=== PATIENT | male | born 1975 | race Hispanic/Latino ===

== ENCOUNTER 2017-07-03 07:36 | Emergency (ER) | payer OTHER ==
--- NOTE | 2017-07-03 08:02 | EDPHYS ---
Physician Documentation [facility] Name: Benson Laura Age: 41 yrs Sex: Male : 1975 Arrival Date: 07/03/2017 Time: 07:41 Bed 18 Private MD: ED Physician Faustino Schmidt HPI: 07/03 08:06 This 41 yrs old Male presents to ER via Ambulatory with complaints of Back jr8 Pain. 08:06 The patient presents with pain that is acute. The symptoms are located in the low back. jr8 Onset: The symptoms/episode began/occurred acutely, yesterday. The pain does not radiate. Associated signs and symptoms: The patient has no apparent associated signs or symptoms. The problem was sustained from twisting. Modifying factors: The patient symptoms are alleviated by nothing, the patient symptoms are aggravated by bending, movement. Severity of symptoms: At their worst the symptoms were moderate, in the emergency department the symptoms are unchanged. The patient has not experienced similar symptoms in the past. The patient has not recently seen a physician. Stated that he slipped on water yesterday and twisted back. Denies falling and hitting back on ground . Historical: - Allergies: 08:05 NKA; iw - Home Meds: 08:05 metformin 500 mg Oral Tb24 twice a day [Active]; iw - PMHx: 08:05 Diabetes - NIDDM; iw - PSHx: 08:05 None; iw - Immunization history:: Adult Immunizations up to date. - Social history:: Smoking status: Patient/guardian denies using tobacco. ROS: 08:06 Eyes: Negative for injury, pain, redness, and discharge, ENT: Negative for injury, jr8 pain, and discharge, Neck: Negative for injury, pain, and swelling, Cardiovascular: Negative for chest pain, palpitations, and edema, Respiratory: Negative for shortness of breath, cough, wheezing, and pleuritic chest pain, Abdomen/GI: Negative for abdominal pain, nausea, vomiting, diarrhea, and constipation, MS/Extremity: Negative for injury and deformity, Skin: Negative for injury, rash, and discoloration, Neuro: Negative for headache, weakness, numbness, tingling, and seizure. 08:06 Back: Positive for decreased range of motion, pain at rest, pain with movement, Negative for radiated pain. Exam: 08:06 Eyes: Pupils equal round and reactive to light, extra-ocular motions intact. Lids and jr8 lashes normal. Conjunctiva and sclera are non-icteric and not injected. Cornea within normal limits. Periorbital areas with no swelling, redness, or edema. ENT: Nares patent. No nasal discharge, no septal abnormalities noted. Tympanic membranes are normal and external auditory canals are clear. Oropharynx with no redness, swelling, or masses, exudates, or evidence of obstruction, uvula midline. Mucous membranes moist. Neck: Trachea midline, no thyromegaly or masses palpated, and no cervical lymphadenopathy. Supple, full range of motion without nuchal rigidity, or vertebral point tenderness. No Meningismus. Cardiovascular: Regular rate and rhythm with a normal S1 and S2. No gallops, murmurs, or rubs. Normal PMI, no JVD. No pulse deficits. Respiratory: Lungs have equal breath sounds bilaterally, clear to auscultation and percussion. No rales, rhonchi or wheezes noted. No increased work of breathing, no retractions or nasal flaring. Abdomen/GI: Soft, non-tender, with normal bowel sounds. No distension or tympany. No guarding or rebound. No evidence of tenderness throughout. Skin: Warm, dry with normal turgor. Normal color with no rashes, no lesions, and no evidence of cellulitis. MS/ Extremity: Pulses equal, no cyanosis. Neurovascular intact. Full, normal range of motion. Neuro: Awake and alert, GCS 15, oriented to person, place, time, and situation. Cranial nerves II-XII grossly intact. Motor strength 5/5 in all extremities. Sensory grossly intact. Cerebellar exam normal. Normal gait. 08:06 Back: pain, that is moderate, of the left low back, ROM is painful, normal spinal alignment noted, CVA tenderness, is absent, muscle spasm, is appreciated in the left low back and right low back. Vital Signs: 08:05 BP 134 / 82; Pulse 89; Resp 16; Temp 98.2; Pulse Ox 98% on R/A; Weight 149.69 kg; iw Height 6 ft. (182.88 cm); Pain 7/10; 08:05 Body Mass Index 44.76 (149.69 kg, 182.88 cm) iw MDM: 07:48 Patient medically screened. jr8 08:01 Data reviewed: vital signs, nurses notes, and as a result, I will discharge patient. jr8 Data interpreted: Pulse oximetry: on room air is 100 %. Interpretation: normal. Counseling: I had a detailed discussion with the patient and/or guardian regarding: the historical points, exam findings, and any diagnostic results supporting the discharge/admit diagnosis, the need for outpatient follow up, a family practitioner, to return to the emergency department if symptoms worsen or persist or if there are any questions or concerns that arise at home. 08:06 ED course: Discussed with patient that because he had no fall or direct injury to back. jr8 Less likely to be some type of vertebral fracture. More likely with the twisting motion to have aggravated nerve root or caused muscle spasm. To try heat therapy in combination with medications given along with rest for 1 week. If worse or not getting better to f/u for reevaluation and possible MRI if needed . Administered Medications: No medications were administered Disposition: 11:31 Co-signature as Attending Physician, Faustino Schmidt MD. rn Disposition: 07/03/17 08:02 Discharged to Home. Impression: Low back pain. - Condition is Stable. - Discharge Instructions: Back Pain, Adult, Musculoskeletal Pain, Back Exercises, [id number], Heat Therapy. - Prescriptions for Ibuprofen 800 mg Oral Tablet - take 1 tablet by ORAL route every 12 hours As needed take with food; 20 tablet. Cyclobenzaprine 10 mg Oral Tablet - take 1 tablet by ORAL route every 8 hours As needed; 30 tablet. Tramadol 50 mg Oral Tablet - take 1 tablet by ORAL route every 8 hours as needed; 12 tablet. - Medication Reconciliation Form, Thank You Letter, Antibiotic Education, Prescription Opioid Use form. - Work release form (07/03/17 15:00). ag - Follow up: Private Physician; When: 10 - 14 days; Reason: If symptoms return, Recheck today's complaints, Continuance of care, Re-evaluation by your physician. - Problem is new. - Symptoms have improved. Signatures: Sangeetha Dc, RN Ina Trevino ch, RN RN iw Nieto, Roman, MD MD rn Roszak, Josh, PA PA jr8 Nohemy Edward
--- NOTE | 2017-07-03 08:24 | ER ---
Nurse's Notes [facility] Name: Benson Laura Age: 41 yrs Sex: Male : 1975 Arrival Date: 07/03/2017 Time: 07:41 Bed 18 Private MD: Diagnosis: Low back pain Presentation: 07/03 07:50 Presenting complaint: Patient states: slipped last night and twisted his back, now has iw left lower back pain 10/02. Transition of care: patient was not received from another setting of care. Onset of symptoms was July 02, 2017. Care prior to arrival: None. 07:50 Method Of Arrival: Ambulatory iw 07:50 Acuity: OBINNA 5 iw Historical: - Allergies: 08:05 NKA; iw - Home Meds: 08:05 metformin 500 mg Oral Tb24 twice a day [Active]; iw - PMHx: 08:05 Diabetes - NIDDM; iw - PSHx: 08:05 None; iw - Immunization history:: Adult Immunizations up to date. - Social history:: Smoking status: Patient/guardian denies using tobacco. Screenin:08 Abuse screen: Denies threats or abuse. Denies injuries from another. Nutritional iw screening: No deficits noted. Tuberculosis screening: No symptoms or risk factors identified. Fall Risk None identified. Assessment: 08:07 General: Appears in no apparent distress. Behavior is calm, cooperative. Pain: iw Complains of pain in left low back Pain currently is 7 out of 10 on a pain scale. Neuro: Level of Consciousness is awake, alert, obeys commands, Oriented to person, place, time, situation, Moves all extremities. Full function. Cardiovascular: Patient's skin is warm and dry. Respiratory: Respiratory effort is even, unlabored, Respiratory pattern is regular. GI: No signs and/or symptoms were reported involving the gastrointestinal system. Abdomen is non-distended. Derm: Skin is pink, warm \T\ dry. normal. Musculoskeletal: Range of motion: intact in all extremities, Reports pain in back. 08:23 Reassessment: Patient appears in no apparent distress at this time. No changes from ch previously documented assessment. Patient and/or family updated on plan of care and expected duration. Pain level reassessed. Patient is alert, oriented x 3, equal unlabored respirations, skin warm/dry/pink. Vital Signs: 08:05 BP 134 / 82; Pulse 89; Resp 16; Temp 98.2; Pulse Ox 98% on R/A; Weight 149.69 kg; iw Height 6 ft. (182.88 cm); Pain 7/10; 08:05 Body Mass Index 44.76 (149.69 kg, 182.88 cm) ED Course: 07:41 Patient arrived in ED. mr 07:48 [facility] jr8 07:48 Faustino Schmidt MD is Attending Physician. jr8 08:05 Triage completed. iw 08:05 Arm band placed on. iw 08:07 Ina Faye, RN is Primary Nurse. iw 08:08 No provider procedures requiring assistance completed. Patient did not have IV access iw during this emergency room visit. 08:23 Patient has correct armband on for positive identification. Bed in low position. Call light in reach. Administered Medications: No medications were administered Outcome: 08:02 Discharge ordered by . 8 08:23 Discharged to home ambulatory, with family. 08:23 Condition: stable 08:23 Discharge instructions given to patient, Instructed on discharge instructions, follow up and referral plans. no drinking with medication, no driving heavy equipment, medication usage, Demonstrated understanding of instructions, follow-up care, medications, Prescriptions given X 3. 08:24 Patient left the ED. Signatures: Sangeetha Dc, RN Vanessa Infante ch mr Ina Faye, RN RN Shamir Cosme PA PA jr8
== END 2017-07-03 08:24 | disposition home or self-care (01) ==
LOC: ER 07:36
DX: M54.5 Low back pain (principal); E11.9 Type 2 diabetes mellitus without complications
CPT/HCPCS: 99282

== ENCOUNTER 2019-12-17 06:17 | Day surgery (SDC) | payer BC ==
[2019-12-11 11:37] LABS: Protime INR 0.88
--- NOTE | 2019-12-11 11:46 | RAD REPORT ---
EXAM DESCRIPTION: RAD - Chest Pa And Lat (2 Views) - 12/11/2019 11:36 am CLINICAL HISTORY: preop Chest pain. COMPARISON: CHEST PA AND LAT 2 VIEW dated 05/17/2015; CHEST SINGLE VIEW dated 11/01/2012 FINDINGS: The lungs are clear. The heart is normal in size. No displaced fractures. IMPRESSION: No acute or concerning finding suspected.
--- OUTSIDE RECORDS SUMMARY | 2019-12-17 06:28 | XMS REPORT | Continuity of Care Document ---
:1975 Author Organization [facility] t Address [address] [place] [address] Care Team Providers Name Role Phone LucindaJose D Attending Clinician Toni PAUL L Attending Clinician Problems Condition Condition Condition Status Onset Resolution Last Treating Co mments Source Name Details Category Date Date Treatment Clinician Date Arthritis Arthritis Diagnosis Active [facility] Pain, Pain, Diagnosis Active [facility], [facility], [facility], [facility] Diabetes Problem Active 2019-10-19 Mem oria mellitus 00:22:42 l (disorder) Diabetes He rmann mellitus (disorder) Active Problem 10/19/2019 [facility] Allergies, Adverse Reactions, Alerts Allergy Allergy Status Severity Reaction(s) Onset Inactive Treating Comm ents Source Name Type Date Date Clinician No Known No Known Active [facility] Medicati Medicati l on on [place] Allergie Allergie s s Social History Smoking Status Start Date Stop Date Source Social History [facility] Medications Ordered Filled Start Stop Current Ordering Indication Dosage Frequency Signature Comments Components Source Medication Medication Date Date Medication? Clinician (SIG) Name Name Metformin Yes 500 mg = 1 Me moria hydrochlori 7-23 tab, PO, l de 500 MG 15:37: BID, 0 Jair n Oral Tablet 00 Refill(s) Metformin Metformin Yes Isaiah not [facility] HCl HCl Menodza defined [facility] Glimepiride Glimepiride Yes Isaiah not [facility] M[facility]za defined [facility] Vital Signs Vital Name Observation Time Observation Value Comments Source Height 2019-10-16 15:35:00 177.8 cm Alfonso Alvaann Weight 2019-10-16 15:35:00 [facility] BMI Calculated 2019-10-16 15:35:00 Sabrina Unger Procedures This patient has no known procedures. Encounters Start End Encounter Admission Attending Care Care Encounter Source Date/Time Date/Time Type Type Clinicians Facility Department ID 2019-11-06 2019-11-06 Outpatient [facility]i [facility] [id number] [facility] 10:30:00 10:30:00 [facility] 2019-11-04 2019-11-04 Outpatient [facility]i [facility] [id number] [facility] 11:25:00 11:25:00 [facility] 2019-10-30 2019-10-30 Outpatient [facility] [id number] [facility] 15[facility]00:00 15:00:00 [facility] 2019-10-24 2019-10-24 Outpatient [facility] [id number] [facility] [address] 11:04:00 11:04:00 t [facility] 2019-10-22 2019-10-22 Outpatient [facility]i [facility] [id number] [facility] [address] 08:00:00 08:00:00 t [facility] 2019-10-17 2019-10-17 Outpatient [facility] [id number] [facility] 09:00:00 09:00:00 t [facility] 2019-10-16 2019-10-16 Outpatient ELIZABETH Jane [facility] [id number] 09:45:00 23:59:59 Raul 00 Jose D 2019-09-23 2019-09-23 Outpatient Fabi [place] [id number] 09:00:00 09:00:00 t [facility] ent Clinics 2019-08-20 2019-08-20 Office FEDERICA Muñoz [id number] 14:56:26 15:37:38 Visit [facility] [id number] Surgical [id number] Specialti [id number] [address] Results This patient has no known results.
--- OUTSIDE RECORDS SUMMARY | 2019-12-17 06:28 | XMS REPORT ---
:1975 Author Organization [employer] Care Team Providers Name Role Phone Isaiah Mendoza Provider Role Unavailable Allergies, Adverse Reactions, Alerts Substance Reaction Event Type N.K.D.A. Info Not Available Non Drug Allergy Problems Problem Type Condition Code Onset Dates Condition Statu s Assessment Pain, joint, knee, right M25.561 Act brianna Problem Arthritis of knee, right M17.11 Act brianna Assessment Arthritis of knee, right M17.11 Act brianna Medications Medication Code System Code Instructions Start End Date Status Dos age Date Metformin HCl [facility] [id number] 500 MG Oral Active no t defined Results No Known Results Summary Purpose [employer] Submission
--- OUTSIDE RECORDS SUMMARY | 2019-12-17 06:28 | XMS REPORT ---
:1975 Author Organization [employer] Care Team Providers Name Role Phone Isaiah Mendoza Provider Role Unavailable Allergies No Known Allergies Problems Problem Type Condition Code Onset Dates Condition Statu s Assessment Pain, joint, knee, right M25.561 Act brianna Problem Arthritis of knee, right M17.11 Act brianna Assessment Arthritis of knee, right M17.11 Act brianna Medications Medication Code System Code Instructions Start End Date Status Dos age Date Metformin HCl [facility] 74142680443 500 MG Oral Active no t defined Results No Known Results Summary Purpose [employer] Submission
--- OUTSIDE RECORDS SUMMARY | 2019-12-17 06:28 | XMS REPORT | Summary of Care ---
:1975 Author Organization [facility] Address [address] [place] [id number]- Encounter HQ Encntr_alias(FIN) [id number] Date(s): 10/16/19 - 10/16/19 [facility] [address] [place] [address]- [phone] Discharge Disposition: Home or Self Care Attending Physician: Raul Jane MD Vital Signs Most recent to oldest [Reference Range]: 1 Height 177.8 cm (10/16/19 10:35 AM) Weight 146.364 kg (10/16/19 10:35 AM) Body Mass Index 46.3 m2 (10/16/19 10:35 AM) Problem List Condition Effective Dates Status Health Status Informant Diabetes(Confirmed) Active Allergies, Adverse Reactions, Alerts No Known Medication Allergies Medications metFORMIN 500 mg oral tablet 500 mg = 1 tab, PO, BID, 0 Refill(s) Start Date: 10/16/19 Status: Ordered Results No data available for this section Immunizations No data available for this section Procedures No data available for this section Social History Social History Type Response Smoking Status Never smoker; Exposure to To bacco Smoke None; Cigarette Smoking Last 365 Days No; Reg Smoking Cessation Counseling No entered on: 10/16/19 Assessment and Plan No data available for this section
--- OUTSIDE RECORDS SUMMARY | 2019-12-17 06:28 | XMS REPORT ---
:1975 Author Organization [employer] Care Team Providers Name Role Phone Reji Isaiah Provider Role Unavailable Allergies No Known Allergies Problems Problem Type Condition Code Onset Dates Condition Statu s Problem Arthritis of knee, right M17.11 Act brianna Medications No Known Medications Results No Known Results Summary Purpose [employer] Submission
--- OUTSIDE RECORDS SUMMARY | 2019-12-17 06:28 | XMS REPORT ---
:1975 Author Organization [employer] Care Team Providers Name Role Phone Isaiah Mendoza Provider Role Unavailable Allergies, Adverse Reactions, Alerts Substance Reaction Event Type N.K.D.A. Info Not Available Non Drug Allergy Problems Problem Type Condition Code Onset Dates Condition Statu s Assessment Arthritis of knee, right M17.11 Act brianna Problem Arthritis of knee, right M17.11 Act brianna Assessment Pain, joint, knee, right M25.561 Act brianna Medications Medication Code Code Instructions Start End Date Status Dosage System Date Glimepiride [facility] [address]-46 Active not defined Metformin HCl [facility] 99437402394 500 MG Oral Active no t defined Results No Known Results Summary Purpose [employer] Submission
--- OUTSIDE RECORDS SUMMARY | 2019-12-17 06:28 | XMS REPORT ---
[...] right M17.11 Act brianna Medications Medication Code Code Instructions Start End Date Status Dosage System Date Metformin HCl [facility] [id number] 500 MG Oral Active no t defined Glimepiride [facility] [address]-25 Active not defined Results No Known Results Summary Purpose [employer] Submission
--- OUTSIDE RECORDS SUMMARY | 2019-12-17 06:28 | XMS REPORT ---
[...] End Date Status Dosage System Date Glimepiride [facility] [address]-94 Active not defined Metformin HCl [facility] 69301262492 500 MG Oral Active no t defined Results No Known Results Summary Purpose [employer] Submission
--- OUTSIDE RECORDS SUMMARY | 2019-12-17 06:28 | XMS REPORT | Continuity of Care Document ---
:1975 Author Organization [employer] Care Team Providers Name Role Phone [facility] Unavailable Un available Problems Problem Status Onset Classification Date Comments Sourc e Date Reported Diabetes Active Problem 10/19/2019 Medica l mellitus Group (disorder) Medications Medication Details Route Status Patient Ordering Order Source Instructions Provider Date Metformin 500 mg = 1 Active hydrochloride tab, PO, 020 [facility] 500 MG Oral BID, 0 Group Tablet Refill(s) Allergies, Adverse Reactions, Alerts Substance Category Reaction Severity Reaction Status Date Comments S ource type Reported No Known Assertion Drug Medication allergy Medic al Allergies Group Immunizations No Data Provided for This Section Results No Data Provided for This Section Pathology Reports No Data Provided for This Section Diagnostic Reports No Data Provided for This Section Consultation Notes No Data Provided for This Section Discharge Summaries No Data Provided for This Section History and Physicals No Data Provided for This Section Vital Signs Vital Sign Value Date Comments Source Height 177.8 cm 10/16/2019 [facility] Weight 146.364 10/16/2019 [facility] BMI Calculated 46.3 10/16/2019 [facility] oup Encounters Location Location Encounter Encounter Reason Attending ADM [facility] Source Details Type Number For Provider Date Date Visit Outpatient [id number] [facility] 10/15 [facility] Outpatient [id number] [facility] 10/15 10/16 [facility] Procedures No Data Provided for This Section Assessment and Plan No Data Provided for This Section Plan of Care No Data Provided for This Section Social History Social History Date Source Social History TypeResponse 10/16/2019 [facility] Smoking Status Never smoker; Exposure to Tobacco Smoke None; Cigarette Smoking Last 365 Days No; Reg Smoking Cessation Counseling No entered on: 10/16/19 Family History No Data Provided for This Section Advance Directives No Data Provided for This Section Functional Status No Data Provided for This Section
[2019-12-17] MEDS ORDERED: CEFAZOLIN/SWI 2gm 2 GM/20 ML SYR ONE (06:48)
[2019-12-17] MEDS ORDERED: NA CHLORIDE 0.9% 1,000 ML ONE (06:48)
[2019-12-17] MEDS ORDERED: FENTANYL CITR 100 MCG/2 ML ONE (07:18)
[2019-12-17] MEDS ORDERED: dexAMETHasone 10 MG/ML VIAL ONE (07:18)
[2019-12-17] MEDS ORDERED: LIDOCAINE 2% MPF 5 ML VIAL ONE (07:18)
[2019-12-17] MEDS ORDERED: MIDAZOLAM HCL 2 MG/2 ML INJ ONE (07:18)
[2019-12-17] MEDS ORDERED: propofoL 200 MG/20 ML VIAL IV ONE (07:18)
[2019-12-17] MEDS ORDERED: BUPIVACAINE 0.25% PF 30 ML VIAL ONE (07:32)
[2019-12-17] MEDS ORDERED: KETOROLAC 30 MG/ML INJ ONE (08:37)
--- NOTE | 2019-12-17 08:56 | P.BOP ---
Preoperative diagnosis: right knee chondromalacia medial femoral condyle Postoperative diagnosis: same, right knee medial meniscus tear, medial plica Primary procedure: right arthroscopic chondroplasty with microfracture medial femoral condyle Secondary procedure: right knee arthroscopic partial medial meniscectomy Other procedure(s): right knee arthroscopic plica excision Personal Coach: NONE,NONE Estimated blood loss: <5 cc Specimen: none Findings: see dictation Complications: None Implants: none Fluids & blood products: per anesthesia record; TT: 31 mins @ 300 mmHg Transferred to: Recovery Room Condition: Good
[2019-12-17] MEDS: MORPHINE 4 MG/ML SYR ONE ×2 (09:05→09:10)
[2019-12-17] MEDS ORDERED: ONDANSETRON 4 MG/2 ML VIAL ONE (09:13)
[2019-12-17] MEDS ORDERED: MEPERIDINE HCL 25 MG/ML SYR ONE (09:23)
[2019-12-17 09:25] VITALS: BP 122/75; TEMP 97.2; O2SAT 97
[2019-12-17] MEDS ORDERED: HYDROCODONE/APAP 7.5/325 MG TAB ONE (09:48)
--- NOTE | 2019-12-18 23:36 | OP ---
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 Postoperative Diagnoses: 1. 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 2. Right shoudler medial meniscus tear. 3. Right shoudler medial plica. Procedure Performed: 1. Right shoudler arthroscopic chondroplasty with microfracture of the medial femoral condyle. 2. Right shoulder arthroscopic partial medial meniscectomy. 3. Right shoulder arthroscopic plica excision. Anesthesia: General laryngeal mask airway. Fluids: Per Anesthesia record. Estimated Blood Loss: Less than 5 cc. Specimens: None. Complications: None. Implants: None. Tourniquet Time: 31 minutes at 300 mmHg. Indication For Procedure: Benson is a 44-year-old male who presented to my clinic with right knee pain. MRI demonstrated a focal area of chondromalacia with some subchondral edema. The patient failed conservative treatment measures including corticosteroid injections as well as viscosupplementation injections. I discussed with the patient at length risks and benefits associated with operative and nonoperative treatment. I also discussed with the patient the possibility of a diffuse chondromalacia, which would be less than amenable to microfracture. He expressed understanding and elected to proceed with the operative treatment. Description Of Procedure: After informed consent was obtained, the patient was identified in the preoperative holding area. The right lower extremity was marked. The patient was then brought back to the operating room, transferred to the operating table in supine fashion, placed under general laryngeal mask airway anesthesia. The right lower extremity was then prepped and draped in the usual sterile fashion. A time-out was initiated. The correct patient and procedure were confirmed and identified. The patient did receive his preoperative prophylactic antibiotics. The right lower extremity was then exsanguinated using an Esmarch and the tourniquet was inflated to 300 mmHg. Standard anteromedial and anterolateral portals were created and the arthroscope was brought in via the anterolateral portal. Diagnostic arthroscopy was performed. The arthroscope was brought into the patellofemoral joint. The patient was noted to have some grade 2 chondromalacia changes of the undersurface of his patella and was also noted to have some what appeared to be small chondral loose bodies within the suprapatellar pouch, which were removed using the arthroscopic shaver. The arthroscope was then brought into both medial and lateral gutters. There were no loose bodies noted in the gutters. The arthroscope was then brought up the medial compartment. The patient was noted to have significant chondromalacia of the weightbearing surface of the medial femoral condyle. Grade 4 type of chondromalacia of approximately 6 mm in width and over 2 cm in length. Grade 4 changes were noted to be over the weightbearing surface. These chondral flaps were then debrided and a chondroplasty was performed using the arthroscopic shaver. The area of the grade 4 chondromalacia microfracture was performed using chondral picks. Multiple holes were then made in the area of the grade 4 chondromalacia changes. Next, attention was taken to the medial meniscus and there was noted to have a degenerative-type tear of the posterior horn of the medial meniscus. An arthroscopic shaver was then used to perform partial medial meniscectomy with stapled meniscal borders. The arthroscope was then brought into the intercondylar notch. The patient was noted to have an intact anterior cruciate ligament and posterior cruciate ligament. The arthroscope was then brought in the lateral compartment and the patient was noted to have an intact lateral meniscus and no significant chondromalacia of the lateral femoral condyle, lateral tibial plateau. The patient was noted to have a medial plica which was rubbing over the medial aspect of the medial femoral condyle. Medial plica excision was performed using an arthroscopic shaver made radiofrequency ablator. Arthroscopic instruments were then removed without complication. The wounds were then irrigated thoroughly with normal saline and approximated using a 3-0 Monocryl. Sterile dressings were applied. Tourniquet was let down. The patient was awakened and transferred to post-anesthesia care unit in stable condition. Postoperative Plan: Benson will be nonweightbearing of his right lower extremity to allow for complete healing of the microfracture. We will begin physical therapy in 4-6 weeks to work on range of motion and strengthening. I discussed with the patient and his family at length the need for weight loss and good glucose control to help prolong the life of his knee. He expressed understanding. CAROLINE/DORI Voice ID: [id number] Report ID: [id number] JAMES
== END 2019-12-17 10:18 | disposition home or self-care (01) ==
LOC: OR 06:17
PROVIDERS: ATTEND Orthopaedic Surgery Sports Medicine
PROC: 0SQC4ZZ Repair Right Knee Joint, Percutaneous Endoscopic Approach (ICD-10-PCS; 2019-12-17)
PROC: 0SBC4ZZ Excision of Right Knee Joint, Percutaneous Endoscopic Approach (ICD-10-PCS; principal; 2019-12-17 07:30)
DX: M94.28 Chondromalacia, other site (principal); M17.11 Unilateral primary osteoarthritis, right knee; E11.9 Type 2 diabetes mellitus without complications; F17.210 Nicotine dependence, cigarettes, uncomplicated; Z20.828 Contact with and (suspected) exposure to other viral communicable diseases
CPT/HCPCS: 93005; 36415; 85610; 82947 ×2; 85730; 71046; 29881; 29879; U0002; J2704; J2250; J3010; J1100; J2175; J0690; J7030; J2405

== ENCOUNTER 2020-08-11 06:22 | Day surgery (SDC) | payer BC ==
--- NOTE | 2020-08-05 13:38 | RAD REPORT ---
EXAM DESCRIPTION: RAD - Chest Pa And Lat (2 Views) - 08/05/2020 1:30 pm CLINICAL HISTORY: preop Chest pain. COMPARISON: <Comparisons> FINDINGS: The lungs are clear. The heart is normal in size. No displaced fractures. IMPRESSION: No acute or concerning finding suspected.
[2020-08-05 13:55] LABS: Absolute Lymphocytes (CBC) 1.6 K/uL (0.7-4.9); Basophils % 0.7 % (0-1.3); Hematocrit 48.4 % (39.6-49.0); Lymphocytes % 21.3 % (15.3-44.8); MPV 9.7 fL (7.6-11.3); RBC Red Blood Cell Count 5.55 M/uL (4.33-5.43)
[2020-08-05 14:04] LABS: Protime INR 1.03
[2020-08-05 14:05] LABS: BUN Blood Urea Nitrogen 13 mg/dL (7-18); Bicarbonate 26 mmol/L (21-32); Glucose Level 185 mg/dL (74-106); Potassium 3.9 mmol/L (3.5-5.1); Sodium Level 137 mmol/L (136-145)
[2020-08-11] MEDS ORDERED: NA CHLORIDE 0.9% 1,000 ML ONE (06:59)
[2020-08-11] MEDS ORDERED: CEFAZOLIN/SWI 2gm 2 GM/20 ML SYR ONE (06:59)
[2020-08-11] MEDS ORDERED: LIDOCAINE 2% MPF 5 ML VIAL ONE (07:07)
[2020-08-11] MEDS ORDERED: FENTANYL CITR 100 MCG/2 ML ONE ×2 (07:07→08:09)
[2020-08-11] MEDS ORDERED: KETOROLAC 30 MG/ML INJ ONE (07:07)
[2020-08-11] MEDS ORDERED: MIDAZOLAM HCL 2 MG/2 ML INJ ONE (07:07)
[2020-08-11] MEDS ORDERED: propofoL 200 MG/20 ML VIAL IV ONE (07:07)
[2020-08-11] MEDS ORDERED: dexAMETHasone 10 MG/ML VIAL ONE (07:07)
[2020-08-11] MEDS ORDERED: BUPIVACAINE 0.25% PF 30 ML VIAL ONE (07:17)
[2020-08-11 07:18] VITALS: TEMP 97
--- NOTE | 2020-08-11 08:41 | P.BOP ---
Preoperative diagnosis: left knee medial meniscus tear and chondromalacia [facility] Postoperative diagnosis: same, left knee medial plica Primary procedure: left knee arthroscopic partial medial meniscectomy Secondary procedure: left knee arthroscopic microfracture medial femoral condyle Other procedure(s): left knee arthroscopic medial plica excision Estimated blood loss: 3 cc Specimen: none Findings: see dictation Anesthesia: General Complications: None Implants: none Fluids & blood products: per anesthesia record; TT: 37 mins @ 300 mmHg Transferred to: Recovery Room Condition: Good
[2020-08-11 09:24] VITALS: BP 140/89; O2SAT 99
[2020-08-11] MEDS ORDERED: HYDROCODONE/APAP 5/325 MG TAB ONE (09:51)
--- NOTE | 2020-08-13 01:19 | OP ---
Date of Procedure: 08/11/2020 Surgeon: Isaiah Mendoza MD Preoperative Diagnoses: Left knee medial meniscus tear and chondromalacia of medial femoral condyle. Postoperative Diagnoses: 1.Left knee medial meniscus tear and chondromalacia of medial femoral condyle. 2.Left knee medial plica. 3.Left knee lateral meniscus tear. Procedures Performed: 1.Left knee arthroscopic partial medial and lateral meniscectomies. 2.Left knee arthroscopic microfracture of medial femoral condyle. 3.Left knee arthroscopic medial plica excision. Anesthesia: General LMA. Fluids: Per Anesthesia record. Estimated Blood Loss: 3 cc. Tourniquet Time: 37 minutes at 300 mmHg. Complications: None. Implants: None. Indication For Procedure: Benson is a 45-year-old male, who presented to my clinic with signs, symp toms, and MRI findings consistent with medial meniscus tear as well as chondromalacia of the medial f emoral condyle. I discussed with the patient at length risks and benefits associated with operative and nonoperative treatment. He expressed understanding and elected to proceed with operative treatme nt. Description Of Procedure: After informed consent was obtained, the patient was identified in the pre operative holding area. The left lower extremity was marked. The patient was then brought back to [facility] operating room, transferred to the operating table in supine fashion and placed under general LMA anesthesia. The left lower extremity was then prepped and draped in usual sterile fashion. A time-o ut was initiated. Correct patient and procedure were confirmed and identified. The patient did rece brianna his preoperative prophylactic antibiotics. The left lower extremity was then exsanguinated and t ourniquet was inflated to 300 mmHg. Standard anteromedial and anterolateral portals were created and a diagnostic arthroscopy was performed. Arthroscope was first brought into the patellofemoral joint where the patient was noted to have no loose bodies and some minimal chondromalacia noted. The arth roscope was then brought into both medial and lateral gutters where the patient was noted to have wojciech e loose bodies, which were removed with an arthroscopic grasper. The arthroscope was then brought in to the medial compartment. The patient was noted to have grade 4 chondromalacia of the medial femora l condyle. The area of chondromalacia was near the periphery over the medial aspect of the medial fe moral condyle over the weightbearing portion of the medial femoral condyle. There were stable should ers at that point and was elected to proceed with microfracture of the area of chondromalacia, which was approximately 4 mm in width by approximately 10-12 mm in length. A microfracture awl was then pl aced to perform the microfracture and this was completed without complication. Next, there was noted the patient had a complex tear of the posterior horn of the medial meniscus near the medial meniscus posterior root. A partial medial meniscectomy was performed using the arthroscopic meniscal biter a s well as an arthroscopic shaver to smooth meniscal borders, which were stable to probe. The arthros cope was then brought to the medial compartment and brought to the intercondylar space where the shane ent was noted to have an intact ACL and PCL, which were stable to probe. The arthroscope was then br ought out the lateral compartment where the patient was noted to have fraying and degenerative menisc us tear of the lateral meniscal body. An arthroscopic shaver as well as meniscal biter was then used to re-perform a partial lateral meniscectomy to stable meniscal borders. There were no significant chondromalacia changes noted within the lateral compartment. The arthroscopic instruments were then removed without complication. The wounds were then irrigated thoroughly with normal saline. The ski n was approximated using a 3-0 Monocryl. Sterile dressings were applied. Tourniquet was let down. The patient was awakened and transferred to PACU in stable condition. Postoperative Plan: The patient will be nonweightbearing on the left lower extremity for 6 weeks sec ondary to the microfracture. He will follow up in my clinic in 2 weeks for wound check. Physical Therapy will be consulted postoperativel yHerbert VELAZQUEZ/DORI Voice ID: [id number] Report ID: [id number]
== END 2020-08-11 10:05 | disposition home or self-care (01) ==
LOC: OR 06:22
PROVIDERS: ATTEND Orthopaedic Surgery Sports Medicine
PROC: 0SQD4ZZ Repair Left Knee Joint, Percutaneous Endoscopic Approach (ICD-10-PCS; 2020-08-11)
PROC: 0SBD4ZZ Excision of Left Knee Joint, Percutaneous Endoscopic Approach (ICD-10-PCS; principal; 2020-08-11 07:15)
DX: S83.242A Other tear of medial meniscus, current injury, left knee, initial encounter (principal); M94.261 Chondromalacia, right knee; Z20.822 Contact with and (suspected) exposure to COVID-19
CPT/HCPCS: 93005; 85025; 80048; 36415; 85610; 82947 ×2; 85730; 71046; 29881; 29879; U0002; J2704; J2250; J3010 ×2; J1100; J0690; J7030

== ENCOUNTER 2020-10-06 18:15 | Emergency (ER) | payer BC ==
--- OUTSIDE RECORDS SUMMARY | 2020-10-06 18:18 | XMS REPORT | Continuity of Care Document ---
:1975 Author Organization [facility] t Address [address] [place] [address] Care Team Providers Name Role Phone Toni PAUL, L Attending Clinician Problems This patient has no known problems. Allergies, Adverse Reactions, Alerts This patient has no known allergies or adverse reactions. Medications Ordered Filled Start Stop Current Ordering Indication Dosage Frequency Signature Comments Components Source Medication Medication Date Date Medication? Clinician (SIG) Name Name Metformin Metformin Yes Isaiah not [facility] HCl HCl [facility]endoza defined [facility] Glimepiride Glimepiride Yes Isaiah not [facility] Mendoza defined [facility] Procedures This patient has no known procedures. Encounters Start End Encounter Admission Attending Care Care Encounter Source Date/Time Date/Time Type Type Clinicians Facility Department ID 2020-09-21 2020-09-21 Outpatient [facility] [id number] [facility] 2020-08-24 2020-08-24 Outpatient [facility] [id number] [facility] 2020-08-10 2020-08-10 Outpatient [facility] [id number] [facility] 2020-07-30 2020-07-30 [facility] [id number] [facility] 2020-07-20 2020-07-20 [facility] [id number] [facility] 2020-06-11 2020-06-11 [facility] [id number] [facility] 2020-03-11 2020-03-11 [facility] [id number] [facility] 2020-02-02 2020-02-02 Out[facility] [id number] [facility] 2020-01-05 2020-01-05 [facility] [id number] [facility] 2019-12-22 2019-12-22 [facility] [id number] [facility] 2019-12-11 2019-12-11 Out[facility] [id number] [facility] 2019-11-06 2019-11-06 [facility] [id number] [facility] 10[facility] 10[facility] 2019-11-04 2019-11-04 [facility] [id number] 11:25:00 11:25:00 [facility] 2019-10-30 2019-10-30 [facility] [id number] 15:00[facility]00 15:00:00 [facility] 2019-10-24 2019-10-24 Outpatient Fabi Moreno [id number] [facility] 11:04:00 11:04:00 [facility] 2019-10-22 2019-10-22 Outpatient Fabi Moreno [id number] [facility] 08:00:00 08:00:00 [facility] 2019-10-17 2019-10-17 Outpatient Fabi Moreno [id number] 09:00:00 09:00:00 [facility] 2019-09-23 2019-09-23 Outpatient Fabi Moreno [id number] 09:00:00 09:00:00 [facility] 2019-08-20 2019-08-20 Office PAWEL Muñoz [id number] 14:56:26 15:37:38 Visit [facility] [id number] Surgical [id number] [facility] [id number] [address] Results This patient has no known results.
--- NOTE | 2020-10-06 21:00 | RAD REPORT ---
EXAM DESCRIPTION: CT - Head Brain Wo Cont - 10/06/2020 8:51 pm CLINICAL HISTORY: Left eye pain and swelling COMPARISON: None TECHNIQUE: Computed axial tomography of the head was obtained. IV contrast was not requested. All CT scans are performed using dose optimization technique as appropriate and may include automated exposure control or mA/KV adjustment according to patient size. FINDINGS: An intracranial bleed is not seen . The ventricles are normal in caliber. No extra-axial fluid collection is noted. Left preseptal swelling. The periorbital fat is clear. Left globe is normal size and density. Extra-o cular muscles normal size and density. Fluid within the sinuses/ mastoids is not seen. IMPRESSION: Left preseptal swelling presumably a preseptal cellulitis
[2020-10-06 21:30] LABS: Absolute Lymphocytes (CBC) 1.5 K/uL (0.7-4.9); Hematocrit 44.8 % (39.6-49.0); MPV 9.7 fL (7.6-11.3); RBC Red Blood Cell Count 5.11 M/uL (4.33-5.43)
--- NOTE | 2020-10-06 21:38 | ER ---
Nurse's Notes [facility] Name: Benson Laura Age: 45 yrs Sex: Male : 1975 Arrival Date: 10/06/2020 Time: 18:16 Bed Treatment Private MD: Yrn Loyola Diagnosis: Cellulitis of left orbit-- Preseptal not orbital Presentation: 10/06 18:22 Chief complaint: Patient states: left eye pain, swelling and tearing x 2 days, denies jl7 trauma. Coronavirus screen: Client denies travel out of the [place] in the last 14 days. At this time, the client does not indicate any symptoms associated with coronavirus-19. Ebola Screen: No symptoms or risks identified at this time. Mechanism of Injury: No Mechanism of Injury. The patient denies any loss of vision. Initial Sepsis Screen: Does the patient meet any 2 criteria? No. Patient's initial sepsis screen is negative. Does the patient have a suspected source of infection? No. Patient's initial sepsis screen is negative. Risk Assessment: Do you want to hurt yourself or someone else? Patient reports no desire to harm self or others. Onset of symptoms was October 04, 2020. 18:22 Method Of Arrival: Ambulatory [facility] 18:22 Acuity: OBINNA 4 jl7 Triage Assessment: 18:24 General: Appears in no apparent distress. uncomfortable, Behavior is calm, cooperative, jl7 appropriate for age. Pain: Complains of pain in left eye Pain currently is 9 out of 10 on a pain scale. EENT: Eyes are tearing on left eye. Historical: - Allergies: 18:24 NKA; jl7 - Home Meds: 18:24 metformin 500 mg Oral Tb24 twice a day [Active]; Glipizide Oral [Active]; jl7 - PMHx: 18:24 Diabetes - NIDDM; jl7 - PSHx: 18:24 SHERMAN knee; jl7 - Immunization history:: Adult Immunizations up to date, Client reports receiving the 2nd dose of the Covid vaccine. - Social history:: Smoking status: Patient denies any tobacco usage or history of. Screenin:34 Abuse screen: Denies threats or abuse. Denies injuries from another. Nutritional kg screening: No deficits noted. Tuberculosis screening: No symptoms or risk factors identified. Fall Risk None identified. No fall in past 12 months (0 pts). No secondary diagnosis (0 pts). IV access (20 points). Ambulatory Aid- None/Bed Rest/Nurse Assist (0 pts). Gait- Normal/Bed Rest/Wheelchair (0 pts) Mental Status- Oriented to own ability (0 pts). Total Hood Fall Scale indicates No Risk (0-24 pts). Assessment: 20:32 Reassessment: Vision is 20/20 in left eye. General: Appears in no apparent distress. kg Behavior is calm, cooperative, appropriate for age, quiet. Pain: Complains of pain in left eye Pain radiates to face Pain currently is 4 out of 10 on a pain scale. at worst was 9 out of 10 on a pain scale. level that patient reports is acceptable is 4 out of 10 on a pain scale. Quality of pain is described as aching, tender, soreness Pain began 2-3 days ago. Neuro: No deficits noted. Cardiovascular: No deficits noted. Respiratory: No deficits noted. GI: No deficits noted. : No deficits noted. EENT: Eyes are tearing on outer aspect of conjuctiva of left eye, iris of left eye and inner aspect of conjunctiva of left eye Sclera/Cornea Lid(s) Swollen. Vital Signs: 18:22 BP 158 / 104; Pulse 77; Resp 15; Temp 98.5; Pulse Ox 99% on R/A; Weight 147.42 kg; jl7 Height 5 ft. 10 in. (177.80 cm); Pain 9/10; 20:35 BP 146 / 93; Pulse 73; Resp 20; Pulse Ox 98% on R/A; kg 21:35 BP 148 / 97; Pulse 71; Resp 20; Pulse Ox 100% on R/A; kg 18:22 Body Mass Index 46.63 (147.42 kg, 177.80 cm) jl7 Visual Acuity: 20:34 Left Eye Visual acuity 20/20, Pupil size 3 mm, Normal, Brisk; Right Eye Visual acuity kg 20/20, Pupil size 3 mm, Normal, Brisk; Both Eyes Visual acuity 20/20; Without Lenses; ED Course: 18:16 Patient arrived in ED. am2 18:16 Yrn Loyola MD is Private Physician. am2 18:24 Triage completed. jl7 18:24 Arm band placed on right wrist. Patient placed in waiting room, Patient notified of jl7 wait time. 20:00 Jai Garvey MD is Attending Physician. ps1 20:15 Ale Desai, RN is Primary Nurse. kg 20:30 Patient has correct armband on for positive identification. Bed in low position. Call kg light in reach. Side rails up X2. 20:34 No provider procedures requiring assistance completed. kg 20:51 CT Head Brain wo Cont In Process Unspecified. EDMS 21:37 Danyell Hernandez MD is Referral Physician. ps1 21:53 IV discontinued, intact, bleeding controlled, No redness/swelling at site. Pressure kg dressing applied. Administered Medications: 21:30 Drug: Decadron - Dexamethasone 10 mg Route: IVP; Site: right wrist; kg 21:47 Follow up: Response: No adverse reaction kg 21:31 Drug: Clindamycin 900 mg Route: IVPB; Infused Over: 30 mins; Site: right wrist; kg 21:47 Follow up: Response: No adverse reaction; IV Status: Completed infusion; IV Intake: 50mlkg 21:33 Drug: NS 0.9% 1000 ml Route: IV; Rate: 1 bolus; Site: right wrist; kg 21:47 Follow up: Response: No adverse reaction; IV Status: Completed infusion; IV Intake: kg 1000ml Intake: 21:47 IV: 50ml; Total: 50ml. kg 21:47 IV: 1000ml; Total: 1050ml. kg Outcome: 21:37 Discharge ordered by . ps1 21:53 Discharged to home ambulatory. kg 21:53 Condition: good 21:53 Discharge instructions given to patient, Instructed on discharge instructions, follow up and referral plans. Demonstrated understanding of instructions, follow-up care, medications, Prescriptions given X 2. 21:58 Patient left the ED. kg Signatures: Dispatcher [employer] EDMS Eli Booker RN RN jl7 Aracely Zacarias am2 Jai Garvey MD MD ps1 Ale Desai, RN RN kg
--- NOTE | 2020-10-06 21:38 | EDPHYS ---
Physician Documentation [facility] Name: Benson Laura Age: 45 yrs Sex: Male : 1975 Arrival Date: 10/06/2020 Time: 18:16 Bed Treatment Private MD: Yrn Loyola ED Physician Jai Garvey HPI: 10/06 20:28 This 45 yrs old Male presents to ER via Ambulatory with complaints of Eye ps1 Swelling, Eye Pain. 20:28 Onset was 3 days ago. Preceded by pimple to left eyebrow. Worsening with associated ps1 swelling to the periorbital tissues and eyelid. No pain with eye movement. Has pain behind the eye. No visual changes. Pain is moderate. Taking ibuprofen. No fever. Has drainage which is clear and not purulent. Has diabetes. Usually well controlled however may be elevated because he recently traveled and diet has been off. Usually between 120-150. . Historical: - Allergies: 18:24 NKA; jl7 - Home Meds: 18:24 metformin 500 mg Oral Tb24 twice a day [Active]; Glipizide Oral [Active]; jl7 - PMHx: 18:24 Diabetes - NIDDM; jl7 - PSHx: 18:24 SHERMAN knee; jl7 - Immunization history:: Adult Immunizations up to date, Client reports receiving the 2nd dose of the Covid vaccine. - Social history:: Smoking status: Patient denies any tobacco usage or history of. ROS: 20:28 Constitutional: Negative for fever, chills, and weight loss, ENT: Negative for injury, ps1 pain, and discharge, Cardiovascular: Negative for chest pain, palpitations, and edema, Respiratory: Negative for shortness of breath, cough, wheezing, and pleuritic chest pain, Abdomen/GI: Negative for abdominal pain, nausea, vomiting, diarrhea, and constipation, MS/Extremity: Negative for injury and deformity, Skin: Negative for injury, rash, and discoloration, Neuro: Negative for headache, weakness, numbness, tingling, and seizure. 20:28 Eyes: Positive for redness, swelling, tearing, of the left upper eyelid, left outer canthus, left inner canthus and left lower eyelid, Negative for discharge, photophobia, visual disturbance. Exam: 20:28 Constitutional: This is a well developed, well nourished patient who is awake, alert, ps1 and in no acute distress. Head/Face: Normocephalic, atraumatic. Chest/axilla: Normal chest wall appearance and motion. Nontender with no deformity. No lesions are appreciated. Cardiovascular: Regular rate and rhythm. No gallops, murmurs, or rubs. Normal PMI, no JVD. No pulse deficits. Respiratory: Lungs have equal breath sounds bilaterally, clear to auscultation and percussion. No rales, rhonchi or wheezes noted. No increased work of breathing, no retractions or nasal flaring. Abdomen/GI: Soft, non-tender, with normal bowel sounds. No distension or tympany. No guarding or rebound. No evidence of tenderness throughout. Skin: Warm, dry with normal turgor. Normal color with no rashes, no lesions, and no evidence of cellulitis. MS/ Extremity: Pulses equal, no cyanosis. Neurovascular intact. Full, normal range of motion. Neuro: Awake and alert, GCS 15, oriented to person, place, time, and situation. Cranial nerves II-XII grossly intact. Sensory grossly intact. 20:28 Eyes: Periorbital structures: cellulitis, that is moderate, on the left supraorbital ridge, left upper eyelid, medial canthus of left eye, lateral canthus of left eye and left lower eyelid, erythema, that is mild, swelling, that is moderate, Pupils: equal, round, and reactive to light and accomodation, Extraocular movements: intact throughout, Conjunctiva: normal, Corneas: are normal, Sclera: no appreciated abnormality. Vital Signs: 18:22 BP 158 / 104; Pulse 77; Resp 15; Temp 98.5; Pulse Ox 99% on R/A; Weight 147.42 kg; jl7 Height 5 ft. 10 in. (177.80 cm); Pain 9/10; 20:35 BP 146 / 93; Pulse 73; Resp 20; Pulse Ox 98% on R/A; kg 21:35 BP 148 / 97; Pulse 71; Resp 20; Pulse Ox 100% on R/A; kg 18:22 Body Mass Index 46.63 (147.42 kg, 177.80 cm) jl7 Visual Acuity: 20:34 Left Eye Visual acuity 20/20, Pupil size 3 mm, Normal, Brisk; Right Eye Visual acuity kg 20/20, Pupil size 3 mm, Normal, Brisk; Both Eyes Visual acuity 20/20; Without Lenses; MDM: 20:24 Patient medically screened. ps1 21:38 Differential diagnosis: preseptal / septal cellulitis, retrobulbar abscess, infection ps1 NOS, conjunctivitis, and others. Data reviewed: vital signs, nurses notes, lab test result(s), radiologic studies, and as a result, I will discharge patient. Counseling: I had a detailed discussion with the patient and/or guardian regarding: the historical points, exam findings, and any diagnostic results supporting the discharge/admit diagnosis, lab results, radiology results, the need for outpatient follow up, to return to the emergency department if symptoms worsen or persist or if there are any questions or concerns that arise at home. 10/06 20:26 Order name: CBC with Diff; Complete Time: 21:35 ps1 10/06 21:35 Interpretation: Within normal limits: WBC 7.00. ps1 10/06 20:26 Order name: BMP ps1 10/06 20:26 Order name: CT Head Brain wo Cont; Complete Time: 21:35 ps1 Administered Medications: 21:30 Drug: Decadron - Dexamethasone 10 mg Route: IVP; Site: right wrist; kg 21:47 Follow up: Response: No adverse reaction kg 21:31 Drug: Clindamycin 900 mg Route: IVPB; Infused Over: 30 mins; Site: right wrist; kg 21:47 Follow up: Response: No adverse reaction; IV Status: Completed infusion; IV Intake: 50mlkg 21:33 Drug: NS 0.9% 1000 ml Route: IV; Rate: 1 bolus; Site: right wrist; kg 21:47 Follow up: Response: No adverse reaction; IV Status: Completed infusion; IV Intake: kg 1000ml Disposition Summary: 10/06/20 21:37 Discharge Ordered Location: Home ps1 Problem: new ps1 Symptoms: have improved ps1 Condition: Stable ps1 Diagnosis - Cellulitis of left orbit - - Preseptal not orbital ps1 Followup: ps1 - With: Danyell Hernandez MD - When: 48 Hours - Reason: Fever > 102 F, Further diagnostic work-up, Recheck today's complaints, Continuance of care Followup: ps1 - With: Emergency Department - When: As needed - Reason: Fever > 102 F, Worsening of condition Discharge Instructions: - Discharge Summary Sheet ps1 - Preseptal Cellulitis, Adult ps1 Forms: - Medication Reconciliation Form ps1 - Thank You Letter ps1 - Antibiotic Education ps1 - Prescription Opioid Use ps1 Prescriptions: - Clindamycin HCl 300 mg Oral Capsule - take 1 capsule by ORAL route every 6 hours for 10 days; 40 capsule; Refills: 0, ps1 Product Selection Permitted - Medrol (Singh) 4 mg Oral Tablets, Dose Pack - take 1 tablet by ORAL route as directed - follow package instructions; 1 ps1 packet; Refills: 0, Product Selection Permitted Signatures: Dispatcher [employer] Eli Frausto RN RN jl7 Jai Garvey MD MD ps1 Ale Desai RN RN kg
[2020-10-06] MEDS ORDERED: NA CHLORIDE 0.9% 1,000 ML ONE (21:45)
[2020-10-06] MEDS ORDERED: dexAMETHasone 10 MG/ML VIAL ONE (21:45)
[2020-10-06] MEDS ORDERED: CLINDAMYCIN 900MG/D5W 900 MG/50 ML IVPB IV ONE (21:45)
[2020-10-06 21:46] LABS: BUN Blood Urea Nitrogen 11 mg/dL (7-18); Bicarbonate 27 mmol/L (21-32); Glucose Level 276 mg/dL (74-106); Potassium 3.9 mmol/L (3.5-5.1); Sodium Level 139 mmol/L (136-145)
[2020-10-06 22:24] VITALS: TEMP 98.5
[2020-10-06 22:27] VITALS: BP 148/97; O2SAT 100
== END 2020-10-06 21:58 | disposition home or self-care (01) ==
LOC: ER 18:15
DX: L03.213 Periorbital cellulitis (principal); E11.9 Type 2 diabetes mellitus without complications
CPT/HCPCS: 96365; 85025; 80048; 36415; 70450; 96375; 99283; J1100; J7030

== ENCOUNTER 2022-12-08 07:05 | Day surgery (SDC) | payer BC ==
--- NOTE | 2022-12-04 11:17 | RAD REPORT ---
EXAM DESCRIPTION: RAD - Chest Pa And Lat (2 Views) - 12/04/2022 11:12 am CLINICAL HISTORY: preop pending knee arthroscopy, diabetes COMPARISON: Chest Pa And Lat (2 Views) dated 08/05/2020; Chest Pa And Lat (2 Views) dated 12/11/2019; CHEST PA AND LAT 2 VIEW dated 05/17/2015; CHEST SINGLE VIEW dated 11/01/2012 FINDINGS: Lines: None. Lungs: No evidence of edema or pneumonia. Pleural: No significant pleural effusions or pneumothorax. Cardiac: The heart size is within normal limits. Mediastinum: Within normal limits. Bones: No acute fractures. Other: None IMPRESSION: No acute cardiopulmonary disease.
[2022-12-04 11:20] LABS: Absolute Lymphocytes (CBC) 1.2 K/uL (0.7-4.9); Hematocrit 48.1 % (39.6-49.0); Lymphocytes % 17.4 % (15.3-44.8); MCV 88.5 fL (80-100); MPV 8.9 fL (7.6-11.3); Platelets 221 thou/uL (152-406); RBC Red Blood Cell Count 5.43 M/uL (4.33-5.43)
[2022-12-04 11:32] LABS: Potassium 3.9 mEq/L (3.5-5.1)
--- NOTE | 2022-12-04 17:05 | EKG ---
Test Date: 2022-12-04 Test Time: 10:53:56 Corporate Pilot: GURMEET MEASUREMENT RESULTS: Intervals: Rate: 74 TN: 164 QRSD: 86 QT: 386 QTc: 428 [place]: P: 66 TN: 164 QRS: 60 T: 66 INTERPRETIVE STATEMENTS: Normal sinus rhythm Normal ECG Compared to ECG 08/05/2020 12:11:49 Myocardial infarct finding no longer present Electronically Signed On 12-04-22 17:04:22 CDT by Moses Jacome
[2022-12-08] MEDS ORDERED: NA CHLORIDE 0.9% 1,000 ML ONE (07:31)
[2022-12-08] MEDS ORDERED: propofoL 200 MG/20 ML VIAL IV ONE (07:35)
[2022-12-08] MEDS ORDERED: LIDOCAINE 2% MPF 5 ML VIAL ONE (07:35)
[2022-12-08] MEDS ORDERED: FENTANYL CITR 100 MCG/2 ML ONE ×2 (07:35→08:35)
[2022-12-08] MEDS: CEFAZOLIN SODIUM 2 GM/VIAL ONE ×2 (07:45→08:00)
[2022-12-08] MEDS ORDERED: TRIAMCINOLONE ACETON 40 MG/ML VIAL ONE (08:06)
[2022-12-08] MEDS ORDERED: SUCCINYLCHOLINE 20 MG/ML (10 ML) IV ONE (08:07)
[2022-12-08] MEDS: BUPIVACAINE 0.25% PF 10 ML VIAL ONE ×2 (08:32→08:52)
--- NOTE | 2022-12-08 09:00 | P.BOP ---
Preoperative diagnosis: right knee medial meniscus tear, right knee osteoarthritis Postoperative diagnosis: same Primary procedure: right knee arthroscopic partial medial meniscectomy Calender Operator Helper: NONE,NONE Estimated blood loss: 3 cc Specimen: none Findings: see dictation Anesthesia: General Complications: None Implants: none Fluids & blood products: per anesthesia record; TT: 19 mins @ 300 mmHg Transferred to: Recovery Room Condition: Good
[2022-12-08] MEDS: HYDROMORPHONE HCL 1 MG/ML INJ ONE ×2 (09:08→09:23)
[2022-12-08 09:47] VITALS: BP 145/82; TEMP 96.8; O2SAT 98
--- NOTE | 2022-12-08 11:00 | OP ---
Date of Procedure: 12/08/2022 Surgeon: Isaiah Mendoza MD Preoperative Diagnoses: 1.Right knee medial meniscus tear. 2.Right knee osteoarthritis. Postoperative Diagnoses: 1.Right knee medial meniscus tear. 2.Right knee osteoarthritis. Procedure Performed: Right knee arthroscopic partial medial meniscectomy. Anesthesia: General endotracheal. Fluids: Per Anesthesia record. Estimated Blood Loss: 3 cc. Complications: None. Implants: None. Tourniquet Time: 90 minutes at 300 mmHg. Indication For Procedure: Benson is a 47-year-old male who presented to my clinic with physical exa m findings as well as MRI findings consistent with right knee medial meniscus tear and right knee ost eoarthritis. Patient failed conservative treatment measures including corticosteroid injection as we ll as viscosupplementation injections. He continued to have pain and mechanical symptoms. We discus sed operative and nonoperative treatment including right knee arthroscopic partial medial meniscectom y as well as risks and benefits associated with the procedure. He expressed understanding and electe d to proceed with operative treatment. Description Of Procedure: After informed consent was obtained, the patient was identified in the pre operative holding area. The right lower extremity was marked. Patient was then brought back to the operating room, transferred to operating table in supine fashion, placed under general endotracheal a nesthesia. The right lower extremity was then prepped and draped in usual sterile fashion. A time-o ut was initiated. The correct patient and procedure were confirmed and identified. Patient did rece brianna his preoperative prophylactic antibiotics. The right lower extremity was then exsanguinated. To urniquet was inflated to 300 mmHg. Standard anteromedial and anterolateral portals were created. Ar throscope was brought in via the anterolateral portal. Diagnostic arthroscopy was performed. Arthro scope was first brought in the patellofemoral joint. The patient did have some grade 2 and 3 chondro malacia changes on the undersurface of the patella and trochlear groove. The arthroscope was then br ought in the medial and lateral gutters and there were no loose bodies found within the gutters. Art hroscope was then brought in the medial compartment. Patient was noted to have grade 3 chondromalaci a changes noted at the medial femoral condyle. Prior area that was microfractured did have some hilu m like cartilage growth filling in most of the defect. Patient did have a complex tear of the postie ior horn of the medial meniscus. A partial medial meniscectomy was performed using meniscal biters a nd arthroscopic shaver to smooth meniscal borders. The arthroscope was then brought back into the in tercondylar notch and the patient was noted to have an intact ACL and PCL. The arthroscope was then brought in the lateral compartment. Patient was noted to have a pristine cartilage of the lateral fe moral condyle and lateral tibial plateau. Lateral meniscus was stable to probe. The arthroscopic in struments were then removed without complication. Wounds were irrigated thoroughly with normal salin e. Portals were approximated using a 4-0 Monocryl. Sterile dressings were applied. Tourniquet was let down. Patient was awakened and transferred to PACU in stable condition. Postoperative Plan: The patient will be weightbearing as tolerated. Physical Therapy will be consul miladis to aid with mobilization and strengthening. He will follow up next week for wound check. CV/MODL Voice ID: [id number] Report ID: [id number]
== END 2022-12-08 10:35 | disposition home or self-care (01) ==
LOC: OR 07:05
PROVIDERS: ATTEND Orthopaedic Surgery Sports Medicine
PROC: 0SBC4ZZ Excision of Right Knee Joint, Percutaneous Endoscopic Approach (ICD-10-PCS; principal; 2022-12-08 08:00)
DX: S83.241A Other tear of medial meniscus, current injury, right knee, initial encounter (principal); M17.11 Unilateral primary osteoarthritis, right knee
CPT/HCPCS: 93005; 85025; 80048; 36415; 85610; 82947; 85730; 71046; 29881; J2704; J2001; J3010 ×2; J1170; J7030; J3301

== ENCOUNTER 2024-07-30 10:02 | Day surgery (SDC) | payer BC ==
[2024-07-25 09:13] LABS: Absolute Eosinophils 0.2 K/uL (0-0.5); Absolute Lymphocytes (CBC) 1.1 K/uL (0.7-4.9); Absolute Monocytes 0.7 K/uL (0.1-1.3); Absolute Neutrophil 2.7 K/uL (1.8-8.0); Eosinophils % 3.3 % (0-4.4); Hematocrit 44.9 % (39.6-49.0); Hemoglobin 15.3 g/dL (13.6-17.9); Lymphocytes % 23.3 % (15.3-44.8); MCH 29.4 pg (27.0-35.0); MCV 86.4 fL (80-100); MPV 8.6 fL (7.6-11.3); Monocytes % 14.7 % (3.3-12.3); Neutrophils % 57.7 % (41.7-73.7); Nucleated Red Blood Cells % 0.2 % (0-0); Platelets 209 thou/uL (152-406)
[2024-07-25 09:19] LABS: PT Prothrombin Time 10.5 SECONDS (10-13.0); PTT, Activated Partial Thromb 34.3 SECONDS (27.2-37.4); Protime INR 0.92
[2024-07-25 09:26] LABS: Anion Gap 8.3 mEq/L (5.0-15.0); Potassium 4.3 mEq/L (3.5-5.1)
--- NOTE | 2024-07-25 09:45 | RAD REPORT ---
EXAM: Chest Pa And Lat (2 Views) HISTORY: 49 years Male PRE OP COMPARISON: 12/04/2022 FINDINGS: LUNGS/PLEURA: The lungs are clear. No pleural effusions or pneumothorax. No pulmonary edema. CARDIAC/MEDIASTINUM: The cardiac silhouette is within normal limits. UPPER ABDOMEN: No significant abnormality. BONES: No acute abnormality. LINES/TUBES/OTHER: N/A IMPRESSION: No evidence of acute cardiopulmonary disease.
--- NOTE | 2024-07-25 16:25 | EKG ---
Test Date: 2024-07-25 Test Time: 09:01:12 Wildlife Protector: CINDY MEASUREMENT RESULTS: Intervals: Rate: 66 IA: 172 QRSD: 88 QT: 404 QTc: 423 [place]: P: 22 IA: 172 QRS: 48 T: 23 INTERPRETIVE STATEMENTS: Normal sinus rhythm Possible Inferior infarct, age undetermined Abnormal ECG Compared to ECG 12/04/2022 10:53:56 Myocardial infarct finding now present Electronically Signed On 07-25-24 16:24:49 CDT by Matthew Walton
[2024-07-30] MEDS ORDERED: propofoL 200 MG/20 ML VIAL IV ONE (10:09)
[2024-07-30] MEDS ORDERED: FENTANYL CITR 100 MCG/2 ML ONE ×2 (10:09→11:32)
[2024-07-30] MEDS ORDERED: MIDAZOLAM HCL 2 MG/2 ML INJ ONE (10:09)
[2024-07-30] MEDS ORDERED: ONDANSETRON 4 MG/2 ML VIAL ONE (10:09)
[2024-07-30] MEDS ORDERED: LIDOCAINE 2% MPF 5 ML VIAL ONE (10:09)
[2024-07-30] MEDS: NA CHLORIDE 0.9% 1,000 ML ONE (10:23)
[2024-07-30] MEDS ORDERED: dexAMETHasone 4 MG/ML VIAL ONE (11:17)
[2024-07-30] MEDS: CEFAZOLIN SODIUM 2 GM/VIAL ONE (11:19)
[2024-07-30] MEDS ORDERED: GLYCOPYRROLATE 0.2 MG/ML SYR ONE (11:24)
[2024-07-30] MEDS ORDERED: KETAMINE HCL IN 0.9 % NACL 50 MG/5 ML SYRINGE IV ONE (11:24)
[2024-07-30] MEDS: BUPIVACAINE 0.25% PF 30 ML VIAL ONE (11:42)
[2024-07-30] MEDS ORDERED: KETOROLAC 30 MG/ML INJ ONE (11:57)
--- NOTE | 2024-07-30 12:02 | P.BOP ---
Preoperative diagnosis: left knee medial and lateral meniscus tears, left knee osteoarthritis Postoperative diagnosis: left knee medial meniscus tear, left knee osteoarthritis Primary procedure: left knee arthroscopic partial medial meniscectomy Lab Director: NONE,NONE Estimated blood loss: 3 cc Specimen: none Findings: see dictation Anesthesia: General Complications: None Implants: none Fluids & blood products: per anesthesia record; TT: 25 mins @ 300 mmHg Transferred to: Recovery Room Condition: Good
[2024-07-30] MEDS: HYDROCODONE/APAP 5/325 MG TAB ONE (13:02)
[2024-07-30 13:04] VITALS: BP 137/79; TEMP 97.2; O2SAT 96
--- NOTE | 2024-07-31 10:07 | P.OP ---
Preoperative diagnosis: Left knee medial meniscus tear, lateral meniscus tear, knee osteoarthritis Postoperative diagnosis: Left knee medial meniscus tear left knee osteoarthritis Primary procedure: left knee arthroscopic partial medial meniscectomy Anesthesia: General Estimated blood loss: 3 cc Specimen: None Findings: see dictation Operative Technique: Indication For Procedure: Benson is a 49-year-old male who presented to my clinic with signs, symptoms, and MRI findings consistent with a left knee medial meniscus tear and possible lateral meniscus tear and underlying left knee osteoarthritis. Patient failed conservative treatment measures including corticosteroid injection. Given his pain and mechanical symptoms we elected to proceed with left knee arthroscopic partial medial and lateral meniscectomies. I discussed with the patient risks and benefits associated with operative and nonoperative treatment including continued pain from his osteoarthritis. He expressed understanding and elected to proceed with operative treatment. Description Of Procedure: After informed consent was obtained, the patient was identified in the preoperative holding area. The left lower extremity was marked. Patient was brought to the operating room transferred to the operative table in the supine fashion and placed under general anesthesia. The left lower extremity was then prepped and draped in usual sterile fashion. A time-out was initiated. The correct patient and procedure were performed and identified. The patient did receive preoperative prophylactic antibiotics. The left lower extremity was exsanguinated using an Esmarch and the tourniquet was inflated to 300 mmHg. Standard anterior medial and anterior lateral portals were created. The arthroscope was brought in via the anterolateral portal and a diagnostic arthroscopy was performed. The arthroscope was first part of the patellofemoral joint which was noted to have grade III chondromalacia changes of the trochlear groove. The arthroscope was then brought on the both medial and lateral gutters and there were no loose bodies found within the gutters. There was a large osteophyte of the medial aspect of the medial femoral condyle as the arthroscope was brought into the medial compartment. The arthroscope was first brought into the medial compartment with the patient was noted to have a complex tear of the posterior horn of the medial meniscus. A partial medial meniscectomy was performed using meniscal biters and arthroscopic shaver to smooth meniscal borders. There were diffuse grade 3 chondromalacia changes with some grade IV of the medial femoral condyle and there was spurring off the tibial eminence at the ACL insertion. The arthroscope was then brought into the intercondylar notch where the patient was noted to have an intact ACL and PCL which were stable to probe. There was noted with minimal impingement of the eminence on the notch with knee in hyperextension. The arthroscope was and brought of the lateral compartment where the patient was noted to have no significant lateral meniscus tear which was stable to probe and mild chondromalacia changes noted in the lateral compartment. Arthroscopic instruments were then removed without complication. Wounds were then irrigated thoroughly with normal saline. Portals were approximated using a 3-0 Monocryl. Sterile dressings were applied. The patient was awakened and transferred to PACU in stable condition. Postoperative Plan: The patient will be weightbearing as tolerated on the left lower extremity. He will follow-up in clinic 1 week for wound check and dressing change. Complications: None Implants: None Fluids & blood products: Per anesthesia record Transferred to: Recovery Room Condition: Good
== END 2024-07-30 13:46 | disposition home or self-care (01) ==
LOC: DS 10:02
PROVIDERS: ATTEND Orthopaedic Surgery Sports Medicine
PROC: 0SBD4ZZ Excision of Left Knee Joint, Percutaneous Endoscopic Approach (ICD-10-PCS; principal; 2024-07-30 11:00)
DX: S83.282A Other tear of lateral meniscus, current injury, left knee, initial encounter (principal); S83.232A Complex tear of medial meniscus, current injury, left knee, initial encounter; M17.12 Unilateral primary osteoarthritis, left knee
CPT/HCPCS: 93005; 85025; 80048; 36415; 85610; 82947 ×2; 85730; 71046; 29881; J3490; J2704; J1100; J2003; J2250; J3010 ×2; J2405; J7030